=== PATIENT | female | born 1970 | race Caucasian/White ===

== ENCOUNTER 2018-01-27 05:30 | Day surgery (SDC) | payer OTHER ==
[~2018-01-27] VITALS: Ht 154.9 cm; Wt 72.6 kg
[2018-01-27] MEDS ORDERED: NEOSTIGMINE METHYLSULFATE 1 MG/ML, 10 ML VIAL IVP ONE (07:25)
[2018-01-27] MEDS ORDERED: ROCURONIUM BROMIDE 10 MG/ML (ZEMURON) IV ONE (07:25)
[2018-01-27] MEDS ORDERED: MIDAZOLAM HCL 5 MG/5 ML VIAL IVP ONE (07:25)
[2018-01-27] MEDS ORDERED: MEPERIDINE HCL/PF 100 MG/ML AMP IM ONE (07:25)
[2018-01-27] MEDS ORDERED: GLYCOPYRROLATE 0.2 MG/ML VIAL IJ ONE (07:25)
[2018-01-27] MEDS ORDERED: CEFAZOLIN 2 GM IVPB PREMIX 50 ML IV ONE (07:25)
[2018-01-27] MEDS ORDERED: fentaNYL CITRATE 250 MCG/5 ML AMP IV ONE (07:25)
[2018-01-27] MEDS ORDERED: SEVOFLURANE 15 MIN GAS INH ONE (07:25)
[2018-01-27] MEDS ORDERED: ALBUTEROL SULFATE 0.083% 2.5 MG/3 ML VIAL.NEB INH ONE ×2 (07:30)
[2018-01-27] MEDS ORDERED: KETOROLAC TROMETHAMINE 30 MG VIAL IVP PRN (08:30)
[2018-01-27] MEDS ORDERED: fentaNYL CITRATE/PF 100 MCG/2 ML AMP IVP PRN ×2 (08:30)
[2018-01-27] MEDS ORDERED: ONDANSETRON HCL 4 MG/2 ML VIAL IVP PRN (09:45)
[2018-01-27] MEDS ORDERED: HYDROmorphone 2 MG TAB PO PRN (09:45)
[2018-01-27] MEDS ORDERED: PROMETHAZINE HCL 25 MG/ML AMP IM PRN (09:45)
[2018-01-27] MEDS ORDERED: OXYCODONE/ACETAMINOPHEN 5-325 TABLET PO PRN (09:45)
[2018-01-27] MEDS ORDERED: ONDANSETRON HCL 4 MG/2 ML VIAL ONE (09:51)
[2018-01-27] MEDS ORDERED: KETOROLAC TROMETHAMINE 30 MG VIAL ONE (10:31)
[2018-01-27] MEDS ORDERED: OXYCODONE/ACETAMINOPHEN 5-325 TABLET ONE (11:00)
[2018-01-27 11:29] VITALS: BP_SYST 119
[2018-01-27] MEDS ORDERED: HYDROmorphone 2 MG TAB ONE (12:25)
== END 2018-01-27 13:40 | disposition home or self-care (01) ==
LOC: SDS 05:30 → SMU 05:30 → SDS 13:40
PROVIDERS: ATTEND Obstetrics & Gynecology
PROC: 8E0W8CZ Robotic Assisted Procedure of Trunk Region, Via Natural or Artificial Opening Endoscopic (ICD-10-PCS; 2018-01-27)
PROC: 0UT94ZZ Resection of Uterus, Percutaneous Endoscopic Approach (ICD-10-PCS; principal; 2018-01-27 07:30)
DX: N93.9 Abnormal uterine and vaginal bleeding, unspecified (principal); J45.998 Other asthma; F41.8 Other specified anxiety disorders; Z83.3 Family history of diabetes mellitus
CPT/HCPCS: 58571; 36415; 86886; 86900; 86901; 88307; 94640; 94760; C1727; J0690; J1885; J2175; J2250; J2405; J2710; J3490; J7120; E0190; J3010